=== PATIENT | male | born 1965 | race Caucasian/White ===

== ENCOUNTER 2021-11-22 21:03 | Inpatient (IN) | payer MEDICAID ==
[~2021-11-22] VITALS: Ht 177.8 cm; Wt 85.7 kg
[2021-11-22 21:03] VITALS: BP 94/66
[2021-11-22 21:10] VITALS: BP 94/66
[2021-11-22] MEDS ORDERED: BISACODYL 5MG TABLET PO PRN (23:45)
[2021-11-22] MEDS ORDERED: ONDANSETRON HCL 4MG TABLET PO PRN (23:45)
[2021-11-22] MEDS ORDERED: HALOPERIDOL LACTATE 5MG/ML VIAL IM PRN (23:45)
[2021-11-22] MEDS ORDERED: ACETAMINOPHEN 650MG/20.3ML UDC PO PRN (23:45)
[2021-11-23 07:55] VITALS: BP 121/86
[2021-11-23 08:00] VITALS: BP 121/84
[2021-11-23] MEDS: CHOLECALCIFEROL (D3) 1000 UNIT TABLET PO SCH (08:42)
[2021-11-23] MEDS: ASCORBIC ACID 500 MG TABLET PO SCH ×2 (08:43→21:02)
[2021-11-23] MEDS: HALOPERIDOL 5MG TABLET PO SCH ×2 (08:44→21:26)
[2021-11-23] MEDS: BENZTROPINE MESYLATE 1MG TABLET PO SCH ×2 (08:44→21:02)
[2021-11-23] MEDS: ASPIRIN 81MG TABLET PO SCH (08:44)
[2021-11-23] MEDS: THIAMINE HCL 100MG TABLET PO SCH (08:44)
[2021-11-23] MEDS: AMLODIPINE 5MG TABLET PO SCH (08:44)
[2021-11-23] MEDS: ZINC SULFATE 220 MG ( 50 ) CAPSULE PO SCH (08:45)
[2021-11-23] MEDS: VALPROIC ACID 250MG CAPSULE PO SCH ×2 (09:13→21:00)
[2021-11-23 12:57] LABS: BASOPHILS % 0.9 % (0.0-2.0); EOSINOPHILS % 2.3 % (0.0-5.0); HEMATOCRIT. 40.1 % (42.0-52.0); HEMOGLOBIN. 14.4 g/dL (14.0-18.0); LYMPHOCYTES % 39.3 % (20.0-50.0); MEAN CORPUSCULAR HEMOGLOBIN 31.9 pg (28.0-32.0); MEAN CORPUSCULAR VOLUME 89.1 fL (80.0-94.0); MONOCYTES % 8.5 % (2.0-8.0); PLATELET 255 x1000/uL (130-400); RED CELL DISTRIBUTION WIDTH 13.9 % (11.6-14.6)
[2021-11-23 13:07] LABS: CHLORIDE 108 mEq/L (98-107)
[2021-11-23 15:38] LABS: CLARITY URINE CLEAR (CLEAR); COLOR URINE DARK YELLOW (YELLOW); KETONES URINE TRACE (NEGATIVE); LEUKOCYTE ESTERASE URINE NEGATIVE (NEGATIVE); NITRITE URINE NEGATIVE (NEGATIVE); OCCULT BLOOD URINE NEGATIVE (NEGATIVE); PH URINE 6.5 (4.5-8.0); PROTEIN URINE NEGATIVE (NEGATIVE); SPECIFIC GRAVITY URINE 1.023 (1.005-1.030)
[2021-11-23] MEDS: ENOXAPARIN 40MG/0.4ML SYR SUBCUT SCH (17:15)
[2021-11-23] MEDS: FAMOTIDINE 20MG TABLET PO SCH ×2 (17:16→21:02)
[2021-11-23 20:00] VITALS: BP 121/82
[2021-11-24 08:00] VITALS: BP 105/79
[2021-11-24] MEDS: BENZTROPINE MESYLATE 1MG TABLET PO SCH ×2 (08:30→20:42)
[2021-11-24] MEDS: THIAMINE HCL 100MG TABLET PO SCH (08:30)
[2021-11-24] MEDS: ASCORBIC ACID 500 MG TABLET PO SCH ×2 (08:30→20:43)
[2021-11-24] MEDS: ASPIRIN 81MG TABLET PO SCH (08:30)
[2021-11-24] MEDS: FAMOTIDINE 20MG TABLET PO SCH ×2 (08:30→20:43)
[2021-11-24] MEDS: ZINC SULFATE 220 MG ( 50 ) CAPSULE PO SCH (08:30)
[2021-11-24] MEDS: HALOPERIDOL 5MG TABLET PO SCH ×2 (08:31→22:01)
[2021-11-24] MEDS: CHOLECALCIFEROL (D3) 1000 UNIT TABLET PO SCH (08:31)
[2021-11-24] MEDS: AMLODIPINE 5MG TABLET PO SCH (08:33)
[2021-11-24] MEDS: VALPROATE SODIUM 250MG/5ML UDC GT SCH ×2 (10:08→20:42)
[2021-11-24] MEDS: ENOXAPARIN 40MG/0.4ML SYR SUBCUT SCH (14:08)
[2021-11-24] MEDS: TAMSULOSIN HCL 0.4MG SR CAPSULE PO SCH (17:23)
[2021-11-24 20:00] VITALS: BP 112/70
[2021-11-25 08:00] VITALS: BP 122/64
[2021-11-25] MEDS: VALPROATE SODIUM 250MG/5ML UDC GT SCH ×2 (09:38→21:00)
[2021-11-25] MEDS: ASPIRIN 81MG TABLET PO SCH (09:38)
[2021-11-25] MEDS: BENZTROPINE MESYLATE 1MG TABLET PO SCH ×2 (09:38→21:00)
[2021-11-25] MEDS: AMLODIPINE 5MG TABLET PO SCH (09:39)
[2021-11-25] MEDS: ASCORBIC ACID 500 MG TABLET PO SCH ×2 (09:39→21:00)
[2021-11-25] MEDS: FAMOTIDINE 20MG TABLET PO SCH ×2 (09:39→21:00)
[2021-11-25] MEDS: TAMSULOSIN HCL 0.4MG SR CAPSULE PO SCH (09:39)
[2021-11-25] MEDS: ZINC SULFATE 220 MG ( 50 ) CAPSULE PO SCH (09:40)
[2021-11-25] MEDS: THIAMINE HCL 100MG TABLET PO SCH (09:40)
[2021-11-25] MEDS: HALOPERIDOL 5MG TABLET PO SCH ×2 (10:41→21:00)
[2021-11-25] MEDS: CHOLECALCIFEROL (D3) 1000 UNIT TABLET PO SCH (10:41)
[2021-11-25] MEDS: ENOXAPARIN 40MG/0.4ML SYR SUBCUT SCH (16:12)
[2021-11-25 20:25] VITALS: BP 102/72
[2021-11-26 08:00] VITALS: BP 124/83
[2021-11-26] MEDS: VALPROATE SODIUM 250MG/5ML UDC GT SCH ×2 (08:36→21:36)
[2021-11-26] MEDS: ZINC SULFATE 220 MG ( 50 ) CAPSULE PO SCH (08:36)
[2021-11-26] MEDS: CHOLECALCIFEROL (D3) 1000 UNIT TABLET PO SCH (08:36)
[2021-11-26] MEDS: ASPIRIN 81MG TABLET PO SCH (08:37)
[2021-11-26] MEDS: THIAMINE HCL 100MG TABLET PO SCH (08:37)
[2021-11-26] MEDS: BENZTROPINE MESYLATE 1MG TABLET PO SCH ×2 (08:37→21:36)
[2021-11-26] MEDS: FAMOTIDINE 20MG TABLET PO SCH ×2 (08:37→21:36)
[2021-11-26] MEDS: TAMSULOSIN HCL 0.4MG SR CAPSULE PO SCH (08:37)
[2021-11-26] MEDS: ASCORBIC ACID 500 MG TABLET PO SCH ×2 (08:37→21:36)
[2021-11-26] MEDS: AMLODIPINE 5MG TABLET PO SCH (08:38)
[2021-11-26] MEDS: HALOPERIDOL 5MG TABLET PO SCH (08:38)
[2021-11-26] MEDS: ENOXAPARIN 40MG/0.4ML SYR SUBCUT SCH (14:23)
[2021-11-26 20:00] VITALS: BP 166/79
[2021-11-27 08:00] VITALS: BP 130/82
[2021-11-27] MEDS: TAMSULOSIN HCL 0.4MG SR CAPSULE PO SCH (09:57)
[2021-11-27] MEDS: HALOPERIDOL 5MG TABLET PO SCH ×2 (09:58→18:09)
[2021-11-27] MEDS: ASPIRIN 81MG TABLET PO SCH (09:58)
[2021-11-27] MEDS: FAMOTIDINE 20MG TABLET PO SCH ×2 (09:58→20:13)
[2021-11-27] MEDS: BENZTROPINE MESYLATE 1MG TABLET PO SCH ×2 (09:58→20:14)
[2021-11-27] MEDS: THIAMINE HCL 100MG TABLET PO SCH (09:58)
[2021-11-27] MEDS: ZINC SULFATE 220 MG ( 50 ) CAPSULE PO SCH (09:58)
[2021-11-27] MEDS: AMLODIPINE 5MG TABLET PO SCH (09:59)
[2021-11-27] MEDS: ASCORBIC ACID 500 MG TABLET PO SCH ×2 (09:59→20:14)
[2021-11-27] MEDS: VALPROATE SODIUM 250MG/5ML UDC GT SCH ×2 (10:38→20:13)
[2021-11-27] MEDS: CHOLECALCIFEROL (D3) 1000 UNIT TABLET PO SCH (10:38)
[2021-11-27] MEDS: ENOXAPARIN 40MG/0.4ML SYR SUBCUT SCH (16:26)
[2021-11-27 20:00] VITALS: BP 101/77
[2021-11-28 08:00] VITALS: BP 126/91
[2021-11-28] MEDS: THIAMINE HCL 100MG TABLET PO SCH (08:43)
[2021-11-28] MEDS: ASCORBIC ACID 500 MG TABLET PO SCH ×2 (08:43→21:12)
[2021-11-28] MEDS: HALOPERIDOL 5MG TABLET PO SCH ×2 (08:43→17:53)
[2021-11-28] MEDS: ASPIRIN 81MG TABLET PO SCH (08:44)
[2021-11-28] MEDS: TAMSULOSIN HCL 0.4MG SR CAPSULE PO SCH (08:44)
[2021-11-28] MEDS: ZINC SULFATE 220 MG ( 50 ) CAPSULE PO SCH (08:44)
[2021-11-28] MEDS: FAMOTIDINE 20MG TABLET PO SCH ×2 (08:44→21:12)
[2021-11-28] MEDS: BENZTROPINE MESYLATE 1MG TABLET PO SCH ×2 (08:44→21:12)
[2021-11-28] MEDS: AMLODIPINE 5MG TABLET PO SCH (08:44)
[2021-11-28] MEDS: VALPROATE SODIUM 250MG/5ML UDC PO SCH ×2 (08:45→21:12)
[2021-11-28] MEDS: CHOLECALCIFEROL (D3) 1000 UNIT TABLET PO SCH (09:00)
[2021-11-28] MEDS: ENOXAPARIN 40MG/0.4ML SYR SUBCUT SCH (15:50)
[2021-11-28 20:00] VITALS: BP 93/63
[2021-11-29 08:00] VITALS: BP 128/93
[2021-11-29] MEDS: FAMOTIDINE 20MG TABLET PO SCH ×2 (09:00→20:53)
[2021-11-29] MEDS: VALPROATE SODIUM 250MG/5ML UDC PO SCH ×2 (09:03→20:52)
[2021-11-29] MEDS: ASCORBIC ACID 500 MG TABLET PO SCH ×2 (09:07→20:53)
[2021-11-29] MEDS: CHOLECALCIFEROL (D3) 1000 UNIT TABLET PO SCH (09:07)
[2021-11-29] MEDS: TAMSULOSIN HCL 0.4MG SR CAPSULE PO SCH (09:08)
[2021-11-29] MEDS: ASPIRIN 81MG TABLET PO SCH (09:08)
[2021-11-29] MEDS: AMLODIPINE 5MG TABLET PO SCH (09:08)
[2021-11-29] MEDS: THIAMINE HCL 100MG TABLET PO SCH (09:08)
[2021-11-29] MEDS: ZINC SULFATE 220 MG ( 50 ) CAPSULE PO SCH (09:08)
[2021-11-29] MEDS: BENZTROPINE MESYLATE 1MG TABLET PO SCH ×2 (09:08→20:53)
[2021-11-29] MEDS: HALOPERIDOL 5MG TABLET PO SCH ×2 (09:15→17:00)
[2021-11-29] MEDS: ENOXAPARIN 40MG/0.4ML SYR SUBCUT SCH (14:33)
[2021-11-29 20:00] VITALS: BP 113/39
[2021-11-30] MEDS: CHOLECALCIFEROL (D3) 1000 UNIT TABLET PO SCH (09:00)
[2021-11-30] MEDS: VALPROATE SODIUM 250MG/5ML UDC PO SCH (09:28)
[2021-11-30] MEDS: HALOPERIDOL 5MG TABLET PO SCH (09:29)
[2021-11-30] MEDS: ZINC SULFATE 220 MG ( 50 ) CAPSULE PO SCH (09:29)
[2021-11-30] MEDS: FAMOTIDINE 20MG TABLET PO SCH (09:29)
[2021-11-30] MEDS: ASPIRIN 81MG TABLET PO SCH (09:29)
[2021-11-30] MEDS: BENZTROPINE MESYLATE 1MG TABLET PO SCH (09:29)
[2021-11-30] MEDS: TAMSULOSIN HCL 0.4MG SR CAPSULE PO SCH (09:29)
[2021-11-30] MEDS: THIAMINE HCL 100MG TABLET PO SCH (09:29)
[2021-11-30] MEDS: AMLODIPINE 5MG TABLET PO SCH (09:30)
[2021-11-30] MEDS: ASCORBIC ACID 500 MG TABLET PO SCH (09:36)
[2021-11-30 09:44] VITALS: BP 114/87
[2021-11-30 10:56] VITALS: BP 114/87
== END 2021-11-30 18:03 | DRG 58 ==
PROVIDERS: ADMIT Psychiatry & Neurology Neurology; ATTEND Hospitalist
PROC: 4A10X4Z Monitoring of Central Nervous Electrical Activity, External Approach (ICD-10-PCS; principal; 2021-11-26)
DX: I69.251 Hemiplegia and hemiparesis following other nontraumatic intracranial hemorrhage affecting right dominant side (principal); I60.9 Nontraumatic subarachnoid hemorrhage, unspecified; I63.539 Cerebral infarction due to unspecified occlusion or stenosis of unspecified posterior cerebral artery; G93.40 Encephalopathy, unspecified; N40.0 Benign prostatic hyperplasia without lower urinary tract symptoms; R32 Unspecified urinary incontinence; I10 Essential (primary) hypertension; Z78.1 Physical restraint status; Z82.49 Family history of ischemic heart disease and other diseases of the circulatory system; Z79.899 Other long term (current) drug therapy; Z79.82 Long term (current) use of aspirin; R15.9 Full incontinence of feces; F12.90 Cannabis use, unspecified, uncomplicated; R26.89 Other abnormalities of gait and mobility
CPT/HCPCS: 36415; 80053; 80076; 81003; 84443; 85025; 87426; 92523; 92610; 93880; 93970; 95816; 97110; 97112; 97116; 97162; 97166; 97530; 97535; A6261; J1630; J1650; A4315